=== PATIENT | female | born 1980 | race Caucasian/White ===

== ENCOUNTER 2016-09-24 13:20 | Emergency (ER) | payer SELFPAY ==
[~2016-09-24] VITALS: Ht 160 cm; Wt 88.6 kg
[~2016-09-24 13:20] MED LIST: AMOXICILLIN 8751 TAB PO; MOTRIN 800800 MG/TAB PO; NO HOME MEDICATIONS; NORCO 325 MG-51 TAB PO
[2016-09-24 13:30] VITALS: BP 135/78; TEMP 98
[2016-09-24] MEDS ORDERED: AMOXICILLIN 50500 MG PO ×2 (13:33→15:22)
[2016-09-24 15:33] VITALS: PULSE 97
== END 2016-09-24 15:34 | disposition home or self-care (01) ==
LOC: COL.ER 13:20
DX: J02.0 Streptococcal pharyngitis (principal)

== ENCOUNTER 2017-07-22 12:10 | Day surgery (SDC) | payer BC ==
[2017-07-22] VITALS (10 sets, daily range): BP systolic 101–137; BP diastolic 71–88; PULSE 58–92; TEMP 97.7
[~2017-07-22] VITALS: Ht 160 cm; Wt 94.8 kg
[~2017-07-22 12:10] MED LIST changes: +AMOXICILLIN 50500 MG PO
[2017-07-22 13:20] LABS: HEMATOCRIT 38.4 % (37.0-47.0); HEMOGLOBIN 12.5 g/dl (12.5-16.0); MEAN CELL VOLUME 81 fl (80.0-100.0); MEAN CORPUSCULAR HEMOGLOBIN 26 pg (27.0-31.0); MEAN CORPUSCULAR HGB CONC 33 g/dl (33.0-37.0); MEAN PLATELET VOLUME 10.4 fl (7.4-10.4); PLATELET COUNT 322 K/mm3 (130-400); RED BLOOD COUNT 4.76 M/mm3 (4.10-5.30); REDCELL DISTRIBUTION WIDTH-CV 14.1 % (11.5-14.5)
[2017-07-22] MEDS ORDERED: ASPIRIN E.C. 8181 MG PO (13:23)
[2017-07-22] MEDS ORDERED: LOPRESSOR 225 MG/TAB PO (13:25)
[2017-07-22] MEDS ORDERED: VALERIAN ROOT (13:27)
[2017-07-22] MEDS ORDERED: AMBIEN 5MG TABLE5 MG PO (13:28)
[2017-07-22] MEDS ORDERED: PRILOSEC10 MG PO (13:29)
[2017-07-22 13:30] LABS: CALCIUM 8.8 mg/dL (8.4-10.2); CREATININE, serum 0.73 mg/dL (0.52-1.25); POTASSIUM 4.1 mmol/L (3.4-5.0)
[2017-07-22 13:47] LABS: PROTHROMBIN TIME 12.1 SECONDS (9.7-12.8)
== END 2017-07-22 18:45 | disposition home or self-care (01) ==
LOC: COL.CAR 12:10
PROVIDERS: Internal Medicine Interventional Cardiology
DX: R07.9 Chest pain, unspecified (principal); I25.10 Atherosclerotic heart disease of native coronary artery without angina pectoris; R00.2 Palpitations; R12 Heartburn; K21.9 Gastro-esophageal reflux disease without esophagitis; F41.9 Anxiety disorder, unspecified; G47.33 Obstructive sleep apnea (adult) (pediatric); F17.210 Nicotine dependence, cigarettes, uncomplicated; Z68.37 Body mass index [BMI] 37.0-37.9, adult
CPT/HCPCS: C9113; J2250; J3010; Q9967